=== PATIENT | female | born 1955 | race Caucasian/White ===

== ENCOUNTER → 2016-09-04 | Outpatient (CLI) | payer BC, OTHER ==
--- NOTE | 2016-09-04 21:58 | MR ---
EXAMINATION TYPE: MR ankle RT wo con, MR foot RT wo con DATE OF EXAM: 09/04/2016 COMPARISON: No radiographic correlation available HISTORY: 60-year-old female Rt ankle/foot pain, swelling, synovitis TECHNIQUE: Multiplanar, multisequence images of the right ankle and foot were obtained without IV con trast. FINDINGS: ANKLE: Evaluation of the osseous structures shows small amount of marrow edema along the posterior margin of the distal fibula. Underlying this, there is a longitudinal split tear of the peroneus brevis extend ing from the malleolus to the inframalleolar portion measuring approximately 3 cm long. There is no a bnormal anterior subluxation of the peroneal tendons. The ATFL appears diminutive, likely chronically torn. There is intermediate signal thickening and los s of the normal striated appearance of the PTFL suggesting chronic sprain. The CFL appears intact. Tiny focus of increased subchondral bone marrow signal along the mid lateral talar dome. Otherwise, n o suspicious bone marrow replacement and no evidence for fracture. Small tibiotalar joint effusion. Incidental os trigonum. There is mild thickening and heterogeneous signal within the AITFL which appears to be intact. The an terior extensor tendons are intact. There is a 1.3 cm ganglion cyst incidentally seen along the media l plantar aspect of the first metatarsal base near the ATT insertion. The deep posterior fibers of the deltoid ligament appear intact. However, there appears to be thicken ing and intermediate signal within the tibial spring ligament, coronal T2 FS image 18 and some thicke ameya of the superomedial ligament of the spring ligament complex, image 17. The medial flexor tendons appear satisfactory. Additional multilocular ganglion cyst along the plantar midfoot at the attachment site of the peroneu s longus. This measures up to 1.6 cm long by 1.2 cm wide, axial image 8 and coronal image 8. Achilles tendon is intact. The tiny plantar calcaneal spur. Origin of plantar fascia appears intact t richelle is mildly and measuring 7 mm. Preserved fatty signal within the sinus tarsi. The tarsal tunnel is clear. FOOT: Nonspecific forefoot soft tissue swelling. No acute or healing fracture is identified. No suspicious bone marrow replacement. There is a small first MTP joint effusion with associated mild degenerative subchondral signal changes at the first MTP joint. COMBINED IMPRESSION: ANKLE: 1. A 3 cm long split tear of the peroneus brevis at the level of the malleolus and inframalleolar seg ment. Reactive bone marrow edema within the adjacent distal fibula. 2. Tiny area of increased subchondral bone marrow signal in the mid lateral talar dome could reflect underlying degenerative change in the tibiotalar joint. 3. Mild high ankle sprain given some thickening and increased signal of the AITFL. Additional chronic sprains of the ATFL and PTFL. 4. Mild sprains of the main spring ligament and tibiospring ligament given thickening and some interm ediate signal. 5. 1.3 cm ganglion cyst at the medial plantar aspect of the midfoot near the ATT insertion. Additiona l 1.6 cm multilocular ganglion cyst along the plantar midfoot near the peroneus longus insertion. FOOT: 1. Mild first MTP joint osteoarthrosis and nonspecific mild forefoot soft tissue swelling.
== END | disposition home or self-care (01) ==
LOC: RADMRIMAIN 16:35
PROVIDERS: ATTEND Orthopaedic Surgery
DX: S96.811A Strain of other specified muscles and tendons at ankle and foot level, right foot, initial encounter (principal); S93.401A Sprain of unspecified ligament of right ankle, initial encounter; M19.071 Primary osteoarthritis, right ankle and foot; M67.471 Ganglion, right ankle and foot

== ENCOUNTER → 2016-09-05 | Outpatient (CLI) | payer BC, OTHER ==
--- NOTE | 2016-09-05 15:40 | XR ---
EXAMINATION TYPE: XR wrist complete LT DATE OF EXAM: 09/05/2016 CLINICAL HISTORY: History of left wrist fracture 2014 with chronic pain since fracture injury. TECHNIQUE: Frontal, lateral and oblique images of the left wrist are obtained. COMPARISON: CT left wrist October 04, 2014 FINDINGS: There is no acute fracture/dislocation evident in the left wrist. Suspect interval distal ulnar resection. There is joint space loss scaphoid articulation with trapezoid and trapezium. There is joint space loss with spurring base of first metacarpal The overlying soft tissue appears unrema rkable. IMPRESSION: As above. Clinical correlation advised.
== END | disposition home or self-care (01) ==
LOC: RADXRMAIN 15:17
DX: Z48.89 Encounter for other specified surgical aftercare (principal); G89.18 Other acute postprocedural pain

== ENCOUNTER → 2016-10-03 | Outpatient (CLI) | payer BC ==
--- NOTE | 2016-10-03 07:50 | US ---
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 Rt renal cyst EXAM MEASUREMENTS: Right Kidney: 11.0 x 6.3 x 7.2 cm Left Kidney: 10.6 x 6.5 x 6.0 cm Post Void Residual Volume: 14.9 mL Right Kidney: upper mid pole simple cyst = 6.1 x 6.0 x6.3cm Left Kidney: No hydronephrosis or masses seen Bladder: wnl Bilateral Jets seen: Yes Normal Post Void Residual: Yes Cortical medullary differentiation is maintained within the kidneys. Midpole cyst right kidney is ane choic with increased through transmission and imperceptible wall. IMPRESSION: Simple cyst right kidney.
== END | disposition home or self-care (01) ==
LOC: RADUSWWP 06:59
PROVIDERS: ATTEND Internal Medicine
DX: N28.1 Cyst of kidney, acquired (principal)
CPT/HCPCS: 76770

== ENCOUNTER 2017-12-30 01:57 | Observation (INO) | payer BC ==
--- NOTE | 2017-12-30 02:26 | ED ---
Chest Pain HPI - General Chief Complaint: Chest Pain Stated Complaint: Chest Pain Time Seen by Provider: 12/30/17 02:24 Source: EMS Mode of arrival: EMS Limitations: no limitations - History of Present Illness MD Complaint: chest pain Onset/Timin -: hour(s) Onset: during rest, awoke with symptoms Pain Location: substernal, left chest Pain Radiation: back Severity: moderate Quality: aching Consistency: constant, now resolved Improves With: nitroglycerin Worsens With: nothing - Related Data Allergies Allergy/AdvReac Type Severity Reaction Status Date / Time acetaminophen Allergy Nausea & Verified 12/30/17 02:06 [From Darvocet-N] Vomiting bee venom protein (honey bee) Allergy Swelling Verified 12/30/17 02:06 mussels Allergy Anaphylaxis Verified 12/30/17 02:06 propoxyphene Allergy Nausea & Verified 12/30/17 02:06 [From Darvocet-N] Vomiting Review of Systems ROS Statement: Those systems with pertinent positive or pertinent negative responses have been documented in the HPI. ROS Other: All systems not noted in ROS Statement are negative. EKG Findings - EKG Results: EKG: interpreted by ERMD, sinus rhythm (Rate 65 bpm), normal axis, normal QRS, normal ST/T - Blocks, [place], Hypertrophy, ST Abn: Chamber hypertrophy or enlargement: only voltage criteria for left ventricular hypertrophy Past Medical History Past Medical History: Mitral Valve Prolapse (MVP) History of Any Multi-Drug Resistant Organisms: None Reported Past Surgical History: Appendectomy, Section, Orthopedic Surgery Additional Past Surgical History / Comment(s): Thyroid sugery, wrist surgery Past Psychological History: No Psychological Hx Reported Smoking Status: Never smoker Past Alcohol Use History: Rare Past Drug Use History: None Reported General Exam Limitations: no limitations General appearance: alert, in no apparent distress Head exam: Present: atraumatic, normocephalic Eye exam: Present: normal appearance. Absent: scleral icterus, conjunctival injection Neck exam: Present: normal inspection Respiratory exam: Present: normal lung sounds bilaterally. Absent: respiratory distress, wheezes, rales, rhonchi, stridor Cardiovascular Exam: Present: regular rate, normal rhythm, normal heart sounds. Absent: systolic murmur, diastolic murmur, rubs, gallop GI/Abdominal exam: Present: soft. Absent: distended, tenderness, guarding, rebound, rigid, mass Extremities exam: Present: normal inspection, normal capillary refill. Absent: pedal edema, calf tenderness Back exam: Present: normal inspection. Absent: CVA tenderness (R), CVA tenderness (L) Neurological exam: Present: alert Skin exam: Present: warm, dry, intact, normal color. Absent: rash Course Vital Signs 12/30/17 02:02 Temperature 98.1 F Pulse Rate 75 Respiratory 18 Rate Blood Pressure 129/78 O2 Sat by Pulse 99 Oximetry Disposition Clinical Impression: Chest pain Disposition: ADMITTED IP TO THIS HOSP Condition: Good Instructions: Chest Pain (ED) Is patient prescribed a controlled substance at d/c from ED?: No Referrals: Ritesh Dailey MD [Primary Care Provider] - 1-2 days
[2017-12-30 02:42] LABS: Basophils % (A) 1 %; Eosinophils # (A) 0.2 k/uL (0-0.7); Eosinophils % (A) 3 %; HCT 38.4 % (34.0-46.0); HGB 12.7 gm/dL (11.4-16.0); Lymphocytes # (A) 1.4 k/uL (1.0-4.8); Lymphocytes % (A) 23 %; MCH 29.1 pg (25.0-35.0); MCHC 32.9 g/dL (31.0-37.0); MCV 88.4 fL (80.0-100.0); Mean Platelet Volume 6.4; Monocytes # (A) 0.3 k/uL (0-1.0); Monocytes % (A) 6 %; Neutrophils % (A) 66 %; Platelet Count 317 k/uL (150-450); RBC 4.35 m/uL (3.80-5.40); RDW 13.6 % (11.5-15.5)
[2017-12-30 02:53] LABS: ALT 25 U/L (9-52); AST 28 U/L (14-36); Alkaline Phosphatase 73 U/L (38-126); Anion Gap 5 mmol/L; Blood Urea Nitrogen 15 mg/dL (7-17); Carbon Dioxide 28 mmol/L (22-30); Chloride 103 mmol/L (98-107); Glucose 93 mg/dL (74-99); Sodium 136 mmol/L (137-145); Total Bilirubin 0.4 mg/dL (0.2-1.3); Total Protein 6.8 g/dL (6.3-8.2)
--- NOTE | 2017-12-30 02:56 | XR ---
EXAMINATION TYPE: XR chest 1V portable DATE OF EXAM: 12/30/2017 COMPARISON: NONE HISTORY: Chest pain TECHNIQUE: Single frontal view of the chest is obtained. FINDINGS: Heart and mediastinum are normal. Lungs are clear. Diaphragm is normal. Bony thorax is int act. IMPRESSION: No active cardiopulmonary disease.
[2017-12-30 03:01] LABS: Partial Thromboplastin Time 24.4 sec (22.0-30.0); Prothrombin Time 9.5 sec (9.0-12.0)
[2017-12-30 03:02] LABS: Creatine Kinase 46 U/L (30-135)
[2017-12-30 03:15] LABS: Creatine Kinase MB 0.5 ng/mL (0.0-2.4); Troponin I <0.012 ng/mL (0.000-0.034)
[2017-12-30] MEDS ORDERED: NITROGLYCERIN SL TABS 0.4 MG TAB SUBLINGUAL PRN (03:59)
[2017-12-30 07:26] VITALS: RESP 18
[2017-12-30 08:31] LABS: Creatine Kinase 50 U/L (30-135)
[2017-12-30 08:43] LABS: Creatine Kinase MB 0.5 ng/mL (0.0-2.4); Troponin I <0.012 ng/mL (0.000-0.034)
[2017-12-30] MEDS ORDERED: CAFFEINE CITRATE 60 MG/3 ML VIAL IV PRN (09:17)
[2017-12-30] MEDS ORDERED: REGADENOSON 0.4 MG/5 ML SYRINGE IV ONE (09:17)
--- NOTE | 2017-12-30 10:05 | ECHOF ---
Referral Reason:cp MEASUREMENTS -------- HEIGHT: 172.7 cm WEIGHT: 108.4 kg BP: 124/77 RVIDd: 2.8 cm (< 3.3) IVSd: 0.9 cm (0.6 - 1.1) LVIDd: 4.2 cm (3.9 - 5.3) LVPWd: 1.0 cm (0.6 - 1.1) IVSs: 1.3 cm LVIDs: 3.3 cm LVPWs: 1.5 cm LA Diam: 3.7 cm (2.7 - 3.8) LAESV Index (A-L): 23.79 ml/m Ao Diam: 2.9 cm (2.0 - 3.7) AV Cusp: 1.3 cm (1.5 - 2.6) LA Diam: 3.2 cm (2.7 - 3.8) MV EXCURSION: 17.354 mm (> 18.000) MV EF SLOPE: 85 mm/s (70 - 150) EPSS: 0.3 cm MV E Chandler: 0.64 m/s MV DecT: 213 ms MV A Chandler: 0.72 m/s MV E/A Ratio: 0.89 AR PHT: 646 ms RAP: 5.00 mmHg RVSP: 30.78 mmHg FINDINGS -------- Sinus rhythm. This was a technically good study. The left ventricular size is normal. Left ventricular wall thickness is normal. Overall left vent ricular systolic function is normal with, an EF between 55 - 60 %. The right ventricle is normal in size. The left atrium is mildly dilated. Normal LA size by volume 22+/-6 ml/m2. The right atrial size is normal. There is mild aortic valve sclerosis. There is mild aortic regurgitation. Mild mitral regurgitation is present. Mild prolapse of the posterior mitral valve leaflet. Mild tricuspid regurgitation present. There is no evidence of pulmonary hypertension. The right v entricular systolic pressure, as measured by Doppler, is 30.78mmHg. Trace/mild (physiologic) pulmonic regurgitation. The aortic root size is normal. There is no pericardial effusion. CONCLUSIONS -------- 1. The left ventricular size is normal. 2. Left ventricular wall thickness is normal. 3. Overall left ventricular systolic function is normal with, an EF between 55 - 60 %. 4. The right ventricle is normal in size. 5. The left atrium is mildly dilated. 6. Normal LA size by volume 22+/-6 ml/m2. 7. The right atrial size is normal. 8. There is mild aortic valve sclerosis. 9. There is mild aortic regurgitation. 10. Mild mitral regurgitation is present. 11. Mild prolapse of the posterior mitral valve leaflet. 12. Mild tricuspid regurgitation present. 13. There is no evidence of pulmonary hypertension. 14. The right ventricular systolic pressure, as measured by Doppler, is 30.78mmHg. 15. Trace/mild (physiologic) pulmonic regurgitation. 16. The aortic root size is normal. 17. There is no pericardial effusion. CASH PROCESSING SPECIALIST: Richelle Villagomez RDCS
--- NOTE | 2017-12-30 10:42 | P.CRDCN ---
History of Present Illness History of present illness: Mrs. Coleman is a pleasant 62-year-old female pasthemoglobin 8.2, platelets 265, sodium 142, potassium 4.4, creatinine 0.92, magnesium 2.0 hemoglobin 12.7, platelets 317, sodium 136, potassium 4.0, creatinine 0.6, magnesium 2.0, cardiac enzymes negative 2. medical history significant for mitral valve prolapse. She denies history of coronary artery disease. She follows with Dr. Fofana in [place] and has regular echo's to monitor the mitral valve. We have been asked to see her in consultation for chest pain. She first felt the discomfort Friday night. She felt a pain under the left breast with radiation around to the mid-sternal region. Described as a pressure sensation. Persisted for 2 hours with no radiation to arms, back, neck or jaw and no associated symptoms. No specific aggravating or alleviating factors, just subsided on its own. She thought her symptoms were associated with indigestion, she took a bath and the pain went away. Woke up last night with similar pain under the breast with radiation to the mid-sternal region. This time the pain also went straight through to the back and she felt short of breath as well. Her has SL nitro and he gave her once. This seemed to relieve her pain. However, she decided to come to ED for evaluation due to the changing symptoms. On the way to the hospital the pressure came back again. They decided to bone puller and call 911 because the pressure was becoming worse. She took at second nitro and again the pain went away. EMS arrived and gave her a third nitro and aspirin. She continued to have intermittent episodes of mild chest discomfort through the night with no specific aggravating or alleviating factors. EKG reveals sinus mechanism with no acute ST or T-wave abnormalities. Chest xray negative for an acute cardiopulmonary process. Laboratory data reviewed, cardiac enzymes negative x2, sodium 136, potassium 4.0 , magnesium 2.0, creatinine 0.6, hgb 12.7, platelets 317. No cardiac daily medications. She states she had a stress test over a year and half ago that she states was normal. At the time of my exam: CONSTITUTIONAL: Denies fever. Denies chills. EYES: Denies blurred vision. Denies vision changes. Denies eye pain. EARS, NOSE, MOUTH & THROAT: Denies headache. Denies sore throat. Denies ear pain. CARDIOVASCULAR: Complains of mild 2-3/10 chest pain. Denies shortness of breath. Denies orthopnea. Denies PND. Denies palpitations. RESPIRATORY: Denies cough. GASTROINTESTINAL: Denies abdominal pain. Denies diarrhea. Denies constipation. Denies nausea. Denies vomiting. MUSCULOSKELETAL: Denies myalgias. INTEGUMENTARY: Denies pruitis. Denies rash. NEUROLOGIC: Denies numbness. Denies tingling. Denies weakness. PSYCHIATRIC: Denies anxiety. Denies depression. ENDOCRINE: Denies fatigue. Denies weight change. Denies polydipsia. Denies polyurina. GENITOURINARY: Denies burning, hematuria or urgency with micturation. HEMATOLOGIC: Denies history of anemia. Denies bleeding. Blood pressure 124/77 heart rate 71 afebrile maintaining oxygen saturation on nasal cannula GENERAL: This is a 62-year-old female in no apparent distress at the time of my examination. Obese. HEENT: Head is atraumatic, normocephalic. Pupils are equal, round. Sclerae anicteric. Conjunctivae are clear. Mucous membranes of the mouth are moist. Neck is supple. There is no jugular venous distention. No carotid bruit is heard. LUNGS: Clear to auscultation no wheezes, rales or rhonchi. No chest wall tenderness is noted on palpation or with deep breathing. HEART: Regular rate and rhythm without murmurs, rubs or gallops. S1 and S2 heard. ABDOMEN: Soft, nontender. Bowel sounds are heard. No organomegaly noted. EXTREMITIES: No evidence of peripheral edema and no calf tenderness noted. VASCULAR: Radial and dorsalis pedis pulses palpated, no evidence of clubbing. NEUROLOGIC: Patient is awake, alert and oriented x3. ASSESSMENT Chest pain at rest, atypical for angina. An acute event has been ruled out. Mitral valve prolapse, follows with Dr. Fofana as an outpatient. Obesity, BMI 36.4 PLAN An acute coronary event has been ruled out. Obtain 2D echocardiogram and doppler study to assess cardiac structure and function. Perform Lexiscan stress test to assess for reversible ischemia. Recommend lifestyle modifications for weight loss and lowering of LDL cholesterol. Discussed with her the possibility of starting her on a stain and she declines due to family members being intolerant. Further recommendations to follow based on clinical course. If stress test is normal she is stable from a cardiac perspective to follow up with Dr. Fofana. Thank you kindly for this consultation. Nurse Practitioner note has been reviewed, I agree with a documented findings and plan of care. Patient was seen and examined. Past Medical History Past Medical History: Mitral Valve Prolapse (MVP) History of Any Multi-Drug Resistant Organisms: None Reported Past Surgical History: Appendectomy, Bariatric Surgery, Section, Orthopedic Surgery Additional Past Surgical History / Comment(s): Thyroid sugery, wrist surgery Past Psychological History: No Psychological Hx Reported Smoking Status: Never smoker Past Alcohol Use History: Rare Past Drug Use History: None Reported - Past Family History Mother History Unknown: Yes Family Medical History: Mitral Valve Prolapse (MVP) Additional Family Medical History / Comment(s): valve replaced Father History Unknown: Yes Family Medical History: CVA/TIA Additional Family Medical History / Comment(s): valve problems Medications and Allergies Home Medications Medication Instructions Recorded Confirmed Type Ferrous Sulfate [Feosol] 325 mg PO DAILY 12/30/17 12/30/17 History Levothyroxine Sodium [Synthroid] 150 mcg PO DAILY 12/30/17 12/30/17 History Allergies Allergy/AdvReac Type Severity Reaction Status Date / Time acetaminophen Allergy Nausea & Verified 12/30/17 08:27 [From Darvocet-N] Vomiting bee venom protein (honey bee) Allergy Swelling Verified 12/30/17 08:27 mussels Allergy Anaphylaxis Verified 12/30/17 08:27 propoxyphene Allergy Nausea & Verified 12/30/17 08:27 [From Darvocet-N] Vomiting Physical Exam Vitals: Vital Signs Temp Pulse Pulse Resp BP BP Pulse Ox 12/30/17 07:13 97.7 F 71 18 124/77 99 12/30/17 07:05 97.1 F L 12/30/17 06:50 63 12 109/52 100 12/30/17 06:40 66 20 109/52 100 12/30/17 06:30 63 14 115/56 100 12/30/17 06:00 74 41 H 113/67 100 12/30/17 05:10 68 17 116/54 99 12/30/17 03:40 71 12 117/62 98 12/30/17 03:20 66 22 125/59 97 12/30/17 03:00 72 14 132/69 98 12/30/17 02:40 70 16 132/69 99 12/30/17 02:10 18 129/78 99 12/30/17 02:03 97 12/30/17 02:02 98.1 F 75 18 129/78 99 Intake and Output 12/29/17 12/30/17 12/30/17 22:59 06:59 14:59 Other: Weight 104.326 kg 108.7 kg Results 12/30/17 02:22 12/30/17 02:22 Cardiac Enzymes 12/30/17 12/30/17 Range/Units 02:22 02:22 AST 28 (14-36) U/L CK-MB (CK-2) 0.5 (0.0-2.4) ng/mL Troponin I <0.012 (0.000-0.034) ng/mL Coagulation 12/30/17 Range/Units 02:22 PT 9.5 (9.0-12.0) sec APTT 24.4 (22.0-30.0) sec CBC 12/30/17 Range/Units 02:22 WBC 6.0 (3.8-10.6) k/uL RBC 4.35 (3.80-5.40) m/uL Hgb 12.7 (11.4-16.0) gm/dL Hct 38.4 (34.0-46.0) % Plt Count 317 (150-450) k/uL Comprehensive Metabolic Panel 12/30/17 Range/Units 02:22 Sodium 136 L (137-145) mmol/L Potassium 4.0 (3.5-5.1) mmol/L Chloride 103 (98-107) mmol/L Carbon Dioxide 28 (22-30) mmol/L BUN 15 (7-17) mg/dL Creatinine 0.60 (0.52-1.04) mg/dL Glucose 93 (74-99) mg/dL Calcium 9.0 (8.4-10.2) mg/dL AST 28 (14-36) U/L ALT 25 (9-52) U/L Alkaline Phosphatase 73 (38-126) U/L Total Protein 6.8 (6.3-8.2) g/dL Albumin 4.0 (3.5-5.0) g/dL Current Medications Generic Name Dose Route Start Last Admin Trade Name Freq PRN Reason Stop Dose Admin Aspirin 325 mg 12/31/17 09:00 Aspirin PO DAILY BARBRA Nitroglycerin 0.4 mg 12/30/17 03:59 Nitrostat SUBLINGUAL Q5M PRN Chest Pain Intake and Output 12/29/17 12/30/17 12/30/17 22:59 06:59 14:59 Other: Weight 104.326 kg 108.7 kg Patient Weight 12/31/17 06:59 Weight 108.7 kg 12/30/17 02:22 12/30/17 02:22
--- NOTE | 2017-12-30 11:32 | EST ---
EXERCISE STRESS DATE OF SERVICE: 12/30/2017 AGE: 62 SEX: Female HT: 5'8" WT: 238 pounds PROTOCOL: Lexiscan Cardiolite STAGE: DURATION OF EXERCISE: HEART RATE REST: 69 BLOOD PRESSURE REST: 132/79 MAXIMUM HEART RATE ACHIEVED: 101 MAXIMUM BLOOD PRESSURE: 143/75 85% MPHR: 100% MPHR: METS: INDICATIONS: Chest pain. CLINICAL INFORMATION: Baseline EKG shows sinus rhythm, normal axis, normal intervals. Patient was given intravenous Lexiscan as per protocol. Did not have chest pain or diagnostic ST-segment depression. CONCLUSIONS: 1. Negative stress test by EKG criteria. 2. Cardiolite portion of the stress test will be reported separately. MMODL / IJN: [id number] /
--- NOTE | 2017-12-30 11:42 | NM ---
EXAMINATION TYPE: NM stress lexiscan cardiolite DATE OF EXAM: 12/30/2017 COMPARISON: NONE HISTORY: Family history of coronary artery disease and history of hypercholesteremia presents with ch est pain TECHNIQUE: After the intravenous administration of 10.35 mCi Tc 99m Sestamibi - Cardiolite resting S PECT images acquired 45 minutes post injection. The patient received 0.4mg Lexiscan, 24.4 mCi Tc 99m Sestamibi - Stress images obtained [address] injection FINDINGS: Review of stress and rest SPECT images demonstrates no distinct perfusion abnormality. Gated analysi s shows normal wall motion with an estimated left ventricular ejection fraction of 66 %. IMPRESSION: No scintigraphic evidence for reversible ischemia.
[2017-12-30] MEDS ORDERED: FERROUS SULFATE 325 MG TAB PO SCH (13:15)
[2017-12-30] MEDS ORDERED: LEVOTHYROXINE 75 MCG TAB PO SCH (13:15)
--- NOTE | 2017-12-30 14:00 | HP ---
HISTORY AND PHYSICAL DATE OF ADMISSION/DATE OF SERVICE: 12/30/2017 PRESENTING COMPLAINT: Chest pain. HISTORY OF PRESENTING COMPLAINT: A very pleasant 62-year-old patient who follows with Dr. Dailey. Chronic stable medical conditions include knee osteoarthritis, hypothyroid, iron deficiency. Patient had a bariatric surgery about 18 years ago. Had lost about 140 pounds and put on about 60 pounds yet again. Patient earlier this morning noticed a pressure in the anterior part of the chest going to the back. There was a slight stabbing component to the same. Patient was slightly short of breath, lightheaded. No perspiration. Did take her 's nitroglycerin with some relief. Symptoms lasted for good over 1 hour. Decided to come to the hospital to rule out a cardiac cause. Denies any obvious heavy lifting or local injury. Patient admitted for cardiac monitoring. Denied any swelling of the lower extremity. REVIEW OF SYSTEMS: CONSTITUTIONAL: None. HEENT: None. RESPIRATORY: As above. CARDIOVASCULAR: As above. GASTROINTESTINAL: None. GENITOURINARY None. MUSCULOSKELETAL: Arthritic pain, especially in the lower joints. DERMATOLOGICAL: None. HEMATOLOGIC: None. LYMPHATICS: None. PSYCHIATRY: None. NEUROLOGICAL: None. PAST MEDICAL HISTORY: Mitral valve prolapse, obesity, knee osteoarthritis, hypothyroidism, iron deficiency anemia cause unknown. PAST SURGICAL HISTORY: Appendectomy, bariatric surgery in 1999, , thyroid surgery, wrist surgery. SOCIAL HISTORY: No smoking, alcohol rarely. 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 FAMILY HISTORY: Reviewed, noncontributory to presentation. HOME MEDICATIONS: 1. Synthroid 150 mcg a day. 2. Iron 325 p.o. daily. ALLERGIES: To DARVOCET-N 100, BEE VENOM, MUSCLES. PHYSICAL EXAMINATION: Temperature 97.5, pulse 76, respiratory 18, blood pressure 126/83, pulse ox 98% on room air. GENERAL APPEARANCE: Well built, BMI 36.4, sitting up, awake. EYES: Pupils equal, conjunctivae normal. HEENT: External appearance of nose and ears normal. Oral cavity normal. NECK: JVD not raised. Mass not palpable. RESPIRATORY: Effort normal. Lungs are clear. CARDIOVASCULAR: First and second sounds are normal, no edema. ABDOMEN: Soft, nontender. Liver and spleen not palpable. LYMPHATIC: No lymph node palpable. PSYCHIATRY: Alert and oriented x3. Mood and affect normal. NEUROLOGICAL: Pupils equal. Cranial nerves grossly intact. Power and sensation grossly intact. MUSCULOSKELETAL: Evidence of osteoarthritis, especially in the hands and knees. INVESTIGATIONS: White count 16, hemoglobin 12.7, potassium 4, BUN and creatinine is normal, troponin x2 negative. EKG tracing personally reviewed by me, shows normal sinus rhythm. Chest x- ray film, personally reviewed by me, is a portable film, no obvious infiltrates. ASSESSMENT: 1. Anterior chest wall pain with some cardiac component. Negative troponin. Rule out a cardiac cause. Patient did undergo a nuclear stress test earlier this morning that came back to be negative. No need to rule out a pulmonary embolism. 2. Primary osteoarthritis of the knee. 3. Obesity, body mass index 36.4 with a prior history of bariatric surgery. 4. Chronic hypothyroidism. 5. Hypothyroidism. PLAN: Initially Cardiology was consulted who did order a stress test, that has come back negative. Will do a CT angio of the chest to rule out PE. Care was discussed with the patient and at the bedside. Questions were answered. MMODL / IJN: [id number] /
--- NOTE | 2017-12-30 14:31 | CT ---
EXAMINATION TYPE: CT angio chest DATE OF EXAM: 12/30/2017 COMPARISON: Chest x-ray from earlier today HISTORY: Chest pain. No prior. Hx heart disease. Multiple issues with IV during scan. Rule out pulmon jolie embolism CT DLP: 297.2 mGycm. Automated Exposure Control for Dose Reduction was Utilized. CONTRAST: CTA scan of the thorax is performed with IV Contrast, patient injected with 100 mL of Isovue 370, pul monary embolism protocol. MIP Images are created on CT scanner and reviewed. FINDINGS: LUNGS: The lungs are grossly clear, there is no concerning parenchymal mass or nodule identified. T here is no pleural effusion or pneumothorax seen. The tracheobronchial tree is patent. MEDIASTINUM: There is suboptimal bolus as there were IV issues during study. There is heterogeneity w ith more prominent contrast in the left heart system versus right heart system. There is no large sad dle central pulmonary embolism. Smaller partially occlusive lobar, segmental, and subsegmental PE can not be excluded on this study. There are no greater than 1 cm hilar or mediastinal lymph nodes. No cardiomegaly or pericardial effusion is seen. Moderate coronary artery calcification LAD and left ci rcumflex is present. Moderate calcifications of the aortic valve is seen. OTHER: Surgical changes from gastric bypass procedure are noted in the epigastric region. There is mi ld multilevel spurring in the thoracic spine. IMPRESSION: Suboptimal study without large central pulmonary embolism. Smaller PE cannot be excluded on this study. No suspicious acute pulmonary process.
[2017-12-30 15:17] LABS: Creatine Kinase 50 U/L (30-135)
[2017-12-30 15:23] VITALS: BP 104/70; PULSE 65; TEMP 98
[2017-12-30 15:29] LABS: Creatine Kinase MB 0.4 ng/mL (0.0-2.4); Troponin I <0.012 ng/mL (0.000-0.034)
--- NOTE | 2017-12-31 07:13 | DS ---
DISCHARGE SUMMARY DATE OF ADMISSION: 12/30/2017 DATE OF DISCHARGE: 12/30/2017 FINAL DIAGNOSES: 1. Anterior chest wall pain could be musculoskeletal. 2. Primary osteoarthritis of the knees. 3. Obesity, body mass index 36.4, with prior history of bariatric surgery. 4. Chronic hypothyroidism. HOSPITAL COURSE: This patient presented anterior chest wall . Troponins were negative. Did undergo a nuclear stress test, this was negative. A 2-D echocardiogram shows preserved LV function. Ejection fraction 55% to 60%. CT scan of the chest was negative for pulmonary embolism. Care was discussed with the patient and the . PHYSICAL EXAMINATION: On examination, afebrile, pulse 55, respirations 18, blood pressure 104/70, pulse ox 97% on room air. LUNGS: Clear. CARDIOVASCULAR: First and second sounds normal. CONSULTATION: Dr. Marleny Mcmillan from Cardiology. DISCHARGE MEDICATIONS: 1. Pepcid 20 mg b.i.d. 2. Iron 325 mg p.o. daily. 3. Synthroid 150 mcg p.o. daily. Follow up with Dr. Dailey in 3 days. Follow up with Dr. Marleny Mcmillan in 2 weeks. MMODL / IJN: [id number] /
[2017-12-31] MEDS ORDERED: ASPIRIN 325 MG TAB PO SCH (09:00)
== END 2017-12-30 16:01 | disposition home or self-care (01) ==
LOC: EC 01:57 → 3SCARD 04:01 → 1SOBS 04:24
PROVIDERS: ADMIT Hospitalist; ATTEND Hospitalist
DX: R07.89 Other chest pain (principal); I34.1 Nonrheumatic mitral (valve) prolapse; D50.9 Iron deficiency anemia, unspecified; E89.0 Postprocedural hypothyroidism; R42 Dizziness and giddiness; R06.02 Shortness of breath; M17.0 Bilateral primary osteoarthritis of knee; E66.9 Obesity, unspecified; Z68.36 Body mass index [BMI] 36.0-36.9, adult; M19.042 Primary osteoarthritis, left hand; M19.041 Primary osteoarthritis, right hand; Z79.890 Hormone replacement therapy; Z79.899 Other long term (current) drug therapy; Z88.6 Allergy status to analgesic agent; Z90.49 Acquired absence of other specified parts of digestive tract; Z91.013 Allergy to seafood; Z91.030 Bee allergy status; Z88.5 Allergy status to narcotic agent; Z98.84 Bariatric surgery status; Z82.3 Family history of stroke; Z82.49 Family history of ischemic heart disease and other diseases of the circulatory system
CPT/HCPCS: 99285; 36415; 93005; 93017; 93306; 80053; 82550; 82553; 83735; 84484; 85025; 85610; 85730; 71045; 71275; 78452; G0378; A9500; J2785; Q9967

== ENCOUNTER → 2020-04-19 | Outpatient (CLI) | payer BC ==
--- NOTE | 2020-04-19 18:36 | US ---
EXAMINATION TYPE: US kidneys/renal and bladder DATE OF EXAM: 04/19/2020 COMPARISON: 10/03/2016 CLINICAL HISTORY: 64-year-old female N28.1 Renal cyst. TECHNIQUE: Multiple sonographic images of the kidneys and bladder are obtained. FINDINGS: EXAM MEASUREMENTS: Right Kidney: 12.1 x 7.0 x 6.5 cm Left Kidney: 12.0 x 4.9 x 5.4 cm Right Kidney: There is a large midpole cyst measuring 7.9 x 6.7 x 7.2cm. Previously measured up to 6. 1 cm. No internal complexity seen. No evident hydronephrosis. Left Kidney: No hydronephrosis. Bladder: appears wnl Bilateral Jets seen: yes IMPRESSION: 1. Large right midpole renal cyst measuring up to 7.9 cm (versus 6.1 cm back in 2017). 2. No hydronephrosis on either side.
== END | disposition home or self-care (01) ==
LOC: RADUSWWP 15:31
PROVIDERS: ATTEND Family Medicine
DX: Z00.00 Encounter for general adult medical examination without abnormal findings (principal); R39.198 Other difficulties with micturition; N28.1 Cyst of kidney, acquired
CPT/HCPCS: 76770